=== PATIENT | male | born 1990 | race Caucasian/White ===

== ENCOUNTER 2018-02-25 18:36 | Emergency (ER) | payer OTHER ==
[~2018-02-25] VITALS: Ht 175.3 cm; Wt 113.4 kg
[~2018-02-25 18:36] MED LIST: ACETAMINOPHEN-1 EAC1 PO; IBUPROFEN 800800 M1 PO; LEXAPRO 10 MG T10 M1 PO; PHENERGAN 25 MG25 M1 PO
[2018-02-25] MEDS ORDERED: TRAMADOL 50 MG50 MG PO (19:53)
[2018-02-25 20:05] VITALS: BP 136/82
== END 2018-02-25 20:05 | disposition home or self-care (01) ==
LOC: M.ERS 18:36
DX: S93.691A Other sprain of right foot, initial encounter (principal); F17.200 Nicotine dependence, unspecified, uncomplicated; Y93.39 Activity, other involving climbing, rappelling and jumping off; Y93.89 Activity, other specified; Y92.89 Other specified places as the place of occurrence of the external cause; Y99.8 Other external cause status